=== PATIENT | female | born 1985 ===

== ENCOUNTER 2024-09-11 06:06 | Day surgery (SDC) | payer OTHER ==
[2024-09-05 13:31] VITALS: BP 120/83
[~2024-09-11] VITALS: Ht 160 cm; Wt 93.0 kg
[2024-09-11] MEDS ORDERED: METRONIDAZOLE/SODIUM CHLORIDE 500 MG/100 ML PIGGYBACK IV ONE ×2 (08:16→10:30)
[2024-09-11] MEDS ORDERED: LIDOCAINE HCL 1%/EPINEPHRINE 20ML VIAL IJ ONE ×2 (09:47→10:30)
[2024-09-11] MEDS ORDERED: BUPIVACAINE HCL/MPF 0.5% 30ML VIAL ONE (09:47)
[2024-09-11] MEDS ORDERED: BUPIVACAINE HCL 30 ML VIAL IJ ONE (10:00)
[2024-09-11] MEDS ORDERED: TRIAMCINOLONE ACETONIDE 40 MG/ML VIAL ONE (10:24)
[2024-09-11] MEDS ORDERED: HEMOSTATIC MATRIX 1 KIT KIT TOP ONE (10:30)
[2024-09-11] MEDS ORDERED: POVIDONE-IODINE 118 ML BOTT TOP ONE (10:30)
[2024-09-11] MEDS ORDERED: TRIAMCINOLONE ACETONIDE 40 MG/ML VIAL IM ONE (10:30)
[2024-09-11] MEDS ORDERED: levoFLOXacin IN DEXTROSE 5 % 5 MG/ML PIGGYBAG IV ONE (10:30)
== END 2024-09-11 16:55 | disposition home or self-care (01) ==
LOC: CIR.AMB 06:06
PROVIDERS: ATTEND Colon & Rectal Surgery
DX: K62.0 Anal polyp (principal); K62.89 Other specified diseases of anus and rectum; D37.5 Neoplasm of uncertain behavior of rectum; Z88.0 Allergy status to penicillin